=== PATIENT | male | born 1940 | race African-American/Black ===

== ENCOUNTER 2016-05-13 07:09 | Day surgery (SDC) | payer OTHER, MEDICARE ==
[2016-05-12 17:38] VITALS: BMI 23.4
[2016-05-13] MEDS ORDERED: MIDAZOLAM HCL 2 MG/2 ML SINGLE DOSE VIAL ONE (09:25)
[2016-05-13] MEDS ORDERED: PROPOFOL 20 ML ONE (09:25)
[2016-05-13] MEDS ORDERED: ceFAZolin SODIUM 1 GM VIAL IVPB ONE (09:38)
[2016-05-13] MEDS ORDERED: ceFAZolin SODIUM 1 GM VIAL ONE (09:39)
--- NOTE | 2016-05-13 10:18 | OP ---
Operative Note - Note: Operative Date: 05/13/16 Pre-Operative Diagnosis: left hydro. lt. JJ lt. stones Operation: cysto,d/c lt. JJ, stone retreival placement of new lt. JJ stent Findings: calcified lt. stent Post-Operative Diagnosis: Same as Pre-op Surgeon: Nanci Cisneros Anesthesia: General Specimens Removed: lt. JJ stent and stones Estimated Blood Loss (mls): 0 Instrument used (Debridements only): none Drains & Tubes with Location: lt. JJ STENT Drains, Volume Out (mls): 0 Blood Volume Replaced (mls): 0 Operative Report Dictated: Yes
[2016-05-13] MEDS ORDERED: oxyCODONE HCL 5 MG TABLET PO PRN (10:20)
[2016-05-13] MEDS ORDERED: ONDANSETRON 4 MG/2 ML VIAL IVPUSH PRN (10:20)
--- NOTE | 2016-05-13 10:28 | OP ---
DATE OF OPERATION: HISTORY: The patient is a 76-year-old male with a history of idiopathic retroperitoneal fibrosis and history of left hydroureteronephrosis who has had a left double-J stent placed in the kidney to prevent the hydronephrosis. His last stent insertion was on December 29, 2015. The patient is here today to have a stent exchange. He will undergo removal of the old stent, a left retrograde pyelogram to reassess the hydronephrosis, and replacement of a new stent. The patient also has history of benign prostatic hypertrophy. He also has an elevated PSA. The patient complains of frequency, urgency, hesitancy, and terminal dribbling. He does have a brother with prostate cancer. PAST MEDICAL HISTORY: Besides the high blood pressure, he is dyslipidemic and does have gastroesophageal reflux disease. He has undergone an abdominal hernia repair in the past. FAMILY HISTORY: He also has a family history of lymphoma as well as stomach cancer. MEDICATIONS: He is on Norvasc and Prilosec as well as a statin. SOCIAL HISTORY: Denies any ethanol or tobacco. ALLERGIES: Denies. PHYSICAL EXAMINATION: General: A well-developed, well-nourished, elderly male in no apparent distress. Chest: Clear to auscultation and percussion. His lungs are clear. Heart: Regular sinus rhythm. Abdomen: Soft. No hepatosplenomegaly is palpated. No CVA tenderness is elicited. Genitalia: Atraumatic. Phallus is normal. Meatus is adequate. Patient is circumcised. Testes are normal in size and consistency. There are no hernias or hydrocele. His prostate is 2+ with some firmness and bilateral nodularity. Extremities: Full range of motion with no clubbing, cyanosis, or edema. The patient's PSA performed on April 29, 2016 was 5.1. Renal function revealed a BUN 18, creatinine 1.04. The sodium was 137, potassium 4.1. A urinalysis revealed 3+ blood, 1+ protein, creatinine 200, PC ratio of 150, which is abnormal. IMPRESSION: 1. At present, idiopathic retroperitoneal fibrosis with left hydronephrosis. 2. Benign prostatic hypertrophy with an elevated prostate-specific antigen. PLAN: Patient will undergo left stent placement. He is scheduled to undergo a transrectal ultrasound as well as an ultrasound-guided biopsy in the office. We will follow the patient as an outpatient. EVELYN CARDOSO M.D. [id number]
[2016-05-13] MEDS ORDERED: LACTATED RINGERS SOLUTION 1,000 ML IV SCH (10:30)
[2016-05-13 11:02] VITALS: TEMP 97.6
--- NOTE | 2016-05-13 11:58 | OP ---
DATE OF OPERATION: PREOPERATIVE DIAGNOSIS: The patient is a 76-year-old male with idiopathic retroperitoneal fibrosis and left hydroureteronephrosis. POSTOPERATIVE DIAGNOSIS: The patient is a 76-year-old male with idiopathic retroperitoneal fibrosis and left hydroureteronephrosis with left ureteral stones. OPERATIVE PROCEDURE: Cystourethroscopy, removal of left JJ stent, left retrograde pyelogram, left stone basketing, left ureteroscopy, and placement of a left JJ stent. ANESTHESIA: General. DESCRIPTION OF PROCEDURE: Under above-stated anesthesia, the patient was prepped and draped in the usual sterile manner. He was placed in the dorsal lithotomy position. External genitalia revealed normal meatus, normal testes. No hernias or hydroceles were elicited. Prostate is 2+, smooth, benign, nontender. Using a 30-degree continuous flow scope, the urethra was entered. Anterior urethra was within normal limits. Prostatic urethra revealed trilobar hypertrophy of the prostate. There were adhesions over the left lateral lobe connecting the base of the lobe to the verumontanum. There was a high median lobe. The bladder was entered. Then 150 mL of urine was drained. This was sent for cytology, C and S, and acid-fast bacilli. Inspection of the bladder revealed a grade 3 trabeculation throughout with multiple saccules. No lesions were seen. No calculi were noted. Ureteral orifices were within normal limits. There was efflux from the right side. A stent was seen protruding from the left side. Using a biopsy forceps, the stent was removed atraumatically. Efflux of urine was clear. A Flexi-Tip catheter was placed into the left ureteral orifice, and approximately 6 mL of contrast material was injected. This revealed a dilated left renal unit with multiple filling defects in the lower ureter; therefore, the cystoscope was removed. Ureteroscopy was then performed. Multiple small stones were found in the lower 1/3 of the ureter. Due to the size of the stone, a basket was passed several times, and all stones were removed. A complete ureteroscopy revealed a normal left renal pelvis with no lesions or calculi. A Glidewire was then passed up the left renal unit. This was done under x-ray control. A 24-cm 6-Czech JJ stent was placed in the left renal unit. Again, x-rays revealed good placement of the stent. The bladder was emptied. The scope was removed. The patient tolerated the procedure well. He returned to the recovery room in good condition. Chiara [id number]
[2016-05-13 12:51] VITALS: BP 147/75; PULSE 60
--- NOTE | 2016-05-16 10:24 | PATH ---
Surgical Pathology Report Patient Name: ALYSE DESOUZA [facility]. Rec. #: [id number] /Age/Gender: 1940 (Age: 76) / M Account: [id number] Location: [facility] SURGICAL Taken: 05/13/2016 Received: 05/13/2016 Reported: 05/16/2016 Physicians: Nanci Cisneros M.D. Specimen(s) Received A: LEFT URETERAL STENT B: LEFT RENAL CALCULI Clinical History Left hydronephrosis Left renal stones Final Diagnosis A. PRODUCTION FINISHER, LEFT URETER, REMOVAL: URETERAL STENT (GROSS ONLY). B. RENAL CALCULI, EXTRACTION: CALCULI SUBMITTED FOR CHEMICAL ANALYSIS (gross only). Electronically Signed Torrey Manuel M.D. Gross Description A. Received fresh, labeled "left ureteral stent," is a 33 cm in length green blue, coiled portion of tubing, consistent with a ureteral stent. No soft tissue is present. No sections are submitted, gross only. B. Received fresh, labeled "renal calculi," is a 0.6 x 0.4 x 0.2 cm aggregate of ladd fragmented calculi. The specimen is sent for chemical analysis. /05/13/201605/13/2016
--- NOTE | 2016-05-16 14:31 | PATH ---
Cytology Non-Gynecological Report Patient Name: ALYSE DESOUZA [facility]. Rec. #: [id number] /Age/Gender: 1940 (Age: 76) / M Account: [id number] Location: [facility] SURGICAL Taken: 05/13/2016 Received: 05/13/2016 Reported: 05/16/2016 Physicians: Nanci Cisneros M.D. Specimen(s) Received URINE VOIDED Clinical History Left hydronephrosis Left renal stone Final Diagnosis URINE FOR CYTOLOGY: SATISFACTORY FOR EVALUATION. BENIGN (NO MALIGNANT CELLS IDENTIFIED). REACTIVE UROTHELIAL CELLS, ABUNDANT RED BLOOD CELLS, AND DEBRIS PRESENT. Comment: Recommend correlation with clinical findings and follow up as clinically indicated. Also see [id number]. Electronically Signed Torrey Manuel M.D. Gross Description Approximately 50 cc of yellow fluid received fresh. One cytofunnel and one cellblock prepared.
[2016-05-23 11:11] LABS: COLOR Brown (.)
== END 2016-05-13 12:40 | disposition home or self-care (01) ==
LOC: JASU-SURG 07:09
PROVIDERS: ATTEND Urology
PROC: BT1FYZZ Fluoroscopy of Left Kidney, Ureter and Bladder using Other Contrast (ICD-10-PCS; 2016-05-13)
PROC: 0T778DZ Dilation of Left Ureter with Intraluminal Device, Via Natural or Artificial Opening Endoscopic (ICD-10-PCS; 2016-05-13)
PROC: 0TC78ZZ Extirpation of Matter from Left Ureter, Via Natural or Artificial Opening Endoscopic (ICD-10-PCS; 2016-05-13)
PROC: 0TP98DZ Removal of Intraluminal Device from Ureter, Via Natural or Artificial Opening Endoscopic (ICD-10-PCS; principal; 2016-05-13 09:00)
PROC: 0T778DZ Dilation of Left Ureter with Intraluminal Device, Via Natural or Artificial Opening Endoscopic (ICD-10-PCS; 2016-05-13 09:00)
DX: N13.2 Hydronephrosis with renal and ureteral calculous obstruction (principal)
CPT/HCPCS: 36415; 76000-TC; 82360; 88108; 88300-TC; 88305-TC; 94760